=== PATIENT | male | born 1955 | race Caucasian/White ===

== ENCOUNTER 2019-01-04 09:17 | Emergency (ER) | payer OTHER ==
[2019-01-04 09:28] VITALS: BMI 32.5
[2019-01-04 09:30] VITALS: TEMP 98.3
--- NOTE | 2019-01-04 10:43 | ED PDOC ---
Upper Extremity Pain/Injury Time Seen by Provider: 01/04/19 10:37 Chief Complaint (Nursing): Finger,Hand,&Wrist Chief Complaint (Provider): finger injury History Per: Patient History/Exam Limitations: no limitations Onset/Duration Of Symptoms: Days Current Symptoms Are (Timing): Still Present Quality: "Pain" Severity: Mild Pain Scale Rating Of: 3 Additional History Per: Patient Additional Complaint(s): 63 year old male with history of hypertension present to the ED c/o left 4th digit pain and limited rom of digit for two months. Patient reports he works as a coat web production designer and two months ago his hand was cold and he slammed a machine at work. Patient states at the time hand was hurting for which he was taking aleve and motrin. Pain has not increased in the last few days from original injury. Patient states pain occurs with bending of the finger. He was then layed off until one month ago when he started working and now has difficulty operating machine because he is unable to fully flex the 4 th digit. Patient denies redness or swelling of digit. Past Medical History Reviewed: Historical Data, Nursing Documentation, Vital Signs Vital Signs: Last Vital Signs Temp 98.3 F 01/04/19 09:28 Pulse 63 01/04/19 09:28 Resp 17 01/04/19 09:28 BP 159/82 H 01/04/19 09:28 Pulse Ox 96 01/04/19 09:28 Primary Care Provider: Eliel Astudillo - Medical History PMH: HTN - Surgical History Surgical History: No Surg Hx - Family History Family History: States: Unknown Family Hx - Living Arrangements Living Arrangements: With Family - Social History Alcohol: None Drugs: Denies - Home Medications Home Medications: Ambulatory Orders Medication Instructions Recorded Ibuprofen [Motrin] 600 mg PO Q6H PRN #30 tab 01/04/19 - Allergies Allergies/Adverse Reactions: Allergies Allergy/AdvReac Type Severity Reaction Status Date / Time No Known Allergies Allergy Verified 01/04/19 09:39 Review of Systems ROS Statement: Except As Marked, All Systems Reviewed And Found Negative Constitutional: Negative for: Fever, Chills, Sweats, Weakness, Malaise Musculoskeletal: Positive for: Hand Pain (left 4th digit pain. limited rom of digit ) Physical Exam - Reviewed Nursing Documentation Reviewed: Yes Vital Signs Reviewed: Yes - Physical Exam Appears: Positive for: Well, Non-toxic, No Acute Distress Head Exam: Positive for: ATRAUMATIC, NORMAL INSPECTION, NORMOCEPHALIC Skin: Positive for: Normal Color, Warm, DRY Eye Exam: Positive for: Normal appearance ENT: Positive for: Normal ENT Inspection Neck: Positive for: Normal Cardiovascular/Chest: Positive for: Regular Rate, Rhythm Respiratory: Positive for: CNT, Normal Breath Sounds Back: Positive for: Normal Inspection Extremity: Positive for: Normal ROM, Capillary Refill (<2 secs cap refill all digits to left hand. point tenderness to base of the metacarpal bone. patient is unable to fully flex finger, restriction to PIP and mcp joint, left 4 digit. neg for swelling or redness to hand or finger. ) Neurological/Psych: Positive for: Awake, Alert, Normal Tone - ECG O2 Sat by Pulse Oximetry: 96 - Radiology X-Ray: Viewed By Me X-Ray Interpretation: Fracture Medical Decision Making Medical Decision Making: --left hand xray 11:30 Xray of hand reviewed by me : no fx. Clinical findings reviewed with patient. Impression: injury to 4th flexor tendon. Patient given referral to hand. Patient advised to call and make an appointment for follow-up. Patient states he understands and agrees with plan. Disposition - Clinical Impression Clinical Impression: Injury of flexor tendon of left hand - Patient ED Disposition Is Patient to be Admitted: No Counseled Patient/Family Regarding: Diagnosis, Need For Followup, Rx Given - Disposition Referrals: Eliel Astudillo [Primary Care Provider] - José Manuel Null MD [Medical Doctor] - Disposition: Routine/Home Disposition Time: 11:30 Condition: GOOD Prescriptions: Ibuprofen [Motrin] 600 mg PO Q6H PRN #30 tab PRN Reason: Pain, Moderate (4-7) Instructions: Common Finger Injuries Forms: [facility] (Hungarian) Print Language: KINYARWANDA - POA Present On Arrival: None
[2019-01-04 12:34] VITALS: BP 132/74; PULSE 64; RESP 18; O2SAT 98
--- NOTE | 2019-01-04 14:04 | RAD ---
PROCEDURE: Left Hand Radiographs. HISTORY: hand injury COMPARISON: None. TECHNIQUE: 3 views obtained. FINDINGS: BONES: No acute fracture or destructive bony lesion identified. JOINTS: Limited degenerative changes seen throughout the interphalangeal joints manifest by joint space narrowing alone. SOFT TISSUES: Normal. OTHER FINDINGS: None. IMPRESSION: No acute fracture or dislocation left hand. 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 No suspicious soft tissue findings.
== END 2019-01-04 12:33 | disposition home or self-care (01) ==
LOC: H.ER 09:17 → SUPCPDRO 09:17 → H.ER 12:33
DX: S66.902A Unspecified injury of unspecified muscle, fascia and tendon at wrist and hand level, left hand, initial encounter (principal); W22.8XXA Striking against or struck by other objects, initial encounter; Y99.0 Civilian activity done for income or pay; I10 Essential (primary) hypertension